=== PATIENT | male | born 1990 | race Hispanic/Latino ===

== ENCOUNTER 2016-04-01 17:48 | Emergency (ER) | payer OTHER ==
[~2016-04-01] VITALS: Ht 177.8 cm; Wt 106.6 kg
[~2016-04-01 17:48] MED LIST: CYCLOBENZAPRINE5 M2 PO; FLUTICASONE PRO16 GM NASB; OMEPRAZOLE40 M1 PO; PRAVASTATIN SOD10 M2 PO; TYLENOL WITH C1 EACH PO
[2016-04-01 17:49] VITALS: BP 125/83
--- NOTE | 2016-04-01 19:34 | ED GI/GU/ABDOMINAL COMPLAINT ---
History of Present Illness General Chief Complaint: Nausea, Vomiting, Diarrhea Stated Complaint: N/V/D Source: patient, old records, friend Exam Limitations: no limitations Vital Signs & Intake/Output Vital Signs & Intake/Output Vital Signs Date Time Temp Pulse Resp B/P Pulse O2 O2 Flow FiO2 Ox Delivery Rate 04/01 1749 97.6 130 20 125/83 96 Room Air Allergies Coded Allergies: NO KNOWN ALLERGIES (11/19/15) Reconcile Medications Fluticasone Propionate 16 GM SPRAY.SUSP 2 SPRAY NASB DAILY SEASONAL ALLERGIES (Reported) Montelukast Sodium 10 MG TABLET 1 TAB PO DAILY BREATHING (Reported) Omeprazole 40 MG CAPSULE.DR 1 CAP PO DAILY ACID REFLUX (Reported) Ondansetron (Zofran Odt) 4 MG TAB.RAPDIS 1 TAB SL TID PRN NAUSEA Pravastatin Sodium 10 MG TABLET 1 TAB PO DAILY CHOLESTEROL (Reported) Valsartan 160 MG TABLET 1 TAB PO DAILY HEART (Reported) Triage Note: PT TO ED C/O N/V/D SINCE THIS AM. C/O HOT AND COLD SWEATS. AFEBRILE. Triage Nurses Notes Reviewed? yes HPI: Patient presents with nausea vomiting diarrhea started this morning. Positive chills but no documented fever. Patient states he gets crampy left lower quadrant pain that escalates in intensity until he has a bowel movement and then the cramping pain subsides. At its worst the pain is 8 out of 10 and at its best it is 1 out of 10 and it is currently a 3 out of 10. Patient has not noticed any blood in his vomitus or his stool. There is no dysuria. There is no radiation of the pain. Past History Travel History Traveled to [place] past 21 day No Medical History Any Pertinent Medical History? 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 No Review of Systems Review of Systems Constitutional: Reports: see HPI, chills. EENTM: Reports: no symptoms. Respiratory: Reports: no symptoms. Cardiovascular: Reports: no symptoms. GI: Reports: see HPI, abdominal pain, diarrhea, nausea, vomiting. Genitourinary: Reports: no symptoms. Musculoskeletal: Reports: no symptoms. Skin: Reports: no symptoms. Neurological/Psychological: Reports: no symptoms. Hematologic/Endocrine: Reports: no symptoms. Immunologic/Allergic: Reports: no symptoms. All Other Systems: Reviewed and Negative Physical Exam Physical Exam General Appearance: well developed/nourished, alert, awake, moderate distress Head: atraumatic, normal appearance Eyes: Bilateral: PERRL, EOMI. Ears, Nose, Throat, Mouth: hearing grossly normal, DRY MUCOSA Neck: normal inspection, supple, full range of motion Respiratory: normal breath sounds, chest non-tender, no respiratory distress, lungs clear Cardiovascular: regular rate/rhythm, normal peripheral pulses Gastrointestinal: normal bowel sounds, soft, non-tender, no organomegaly, NO RLQ TENDERNESS Back: normal inspection, normal range of motion Extremities: normal range of motion Neurologic/Psych: no motor/sensory deficits, awake, alert, oriented x 3, normal mood/affect Skin: intact, normal color, warm/dry Core Measures ACS in differential dx? No Severe Sepsis Present: No Septic Shock Present: No Progress Differential Diagnosis: appendicitis, biliary colic, colon cancer, cholecystitis , diverticulitis, gastritis, hepatitis, ischemic bowel, inflamm bowel dis, pancreatitis, peptic ulcer, PUD/GERD, SBO Plan of Care: Orders Procedure Date/time Status LIPASE 04/01 1933 Complete COMPREHENSIVE METABOLIC PANEL 04/01 1933 Complete CBC WITHOUT DIFFERENTIAL 04/01 1933 Complete AMYLASE 04/01 1933 Complete Laboratory Tests 04/01/161956: Anion Gap 12, Estimated GFR > 60, BUN/Creatinine Ratio 13.8, Glucose 113 H, Calcium 9.3, Total Bilirubin 0.8, AST 30, ALT 64, Alkaline Phosphatase 73, Total Protein 7.3, Albumin 4.2, Globulin 3.1, Albumin/Globulin Ratio 1.4, Amylase 37, Lipase 37, CBC w Diff NO MAN DIFF REQ, RBC 5.42, MCV 90.7, MCH 31.1 H, RDW 13.0 , MPV 9.3, Gran % 93.6 H, Lymphocytes % 2.7 L, Monocytes % 3.6, Eosinophils % 0.1, Basophils % 0 L, Absolute Granulocytes 10.8 H, Absolute Lymphocytes 0.3 L, Absolute Monocytes 0.4, Absolute Eosinophils 0, Absolute Basophils 0, PUBS MCHC 34.3 Initial ED EKG: none Comments: ON RE-EXAM: NO RLQ TENDERNESS, NO GUARDING OR REBOUND Departure Departure Disposition: HOME OR SELF CARE Condition: Stable Clinical Impression Primary Impression: Viral gastroenteritis Referrals: BRIANA TRAORE MD (PCP/Family) Additional Instructions: Drink plenty fluids. Return if symptoms worsen or for any concerns. Departure Forms: Customer Survey General Discharge Information Prescriptions: Current Visit Scripts Ondansetron (Zofran Odt) 1 TAB SL TID PRN NAUSEA #10 TAB
[2016-04-01 20:07] LABS: ABSOLUTE BASOPHIL COUNT 0 /CUMM (0.0-0.2); ABSOLUTE EOSINOPHIL COUNT 0 /CUMM (0.0-0.7); ABSOLUTE GRANULOCYTE CT 10.8 /CUMM (1.4-6.5); ABSOLUTE LYMPH COUNT 0.3 /CUMM (1.2-3.4); ABSOLUTE MONOCYTE COUNT 0.4 /CUMM (0.10-0.60); BASOPHIL % 0 % (0.0-2.0); EOSINOPHIL % 0.1 % (0-5); HEMATOCRIT 49.2 % (42-52); MEAN CORPUSCULAR HGB 31.1 PG (27.0-31.0); MEAN CORPUSCULAR HGB CONC 34.3 G/DL (33.0-37.0); MEAN CORPUSCULAR VOLUME 90.7 FL (80.0-94.0); MEAN PLATELET VOLUME 9.3 FL (7.4-10.4); PLATELET COUNT 250 /CUMM (130-400); RED BLOOD CELL CT 5.42 /CUMM (4.70-6.10); WHITE BLOOD CELL COUNT 11.5 /CUMM (4.8-10.8)
[2016-04-01 20:31] LABS: GRANULOCYTE % 93.6 % (42.2-75.2)
[2016-04-01] MEDS ORDERED: MONTELUKAST SOD10 M1 PO (21:19)
[2016-04-01] MEDS ORDERED: VALSARTAN160 M1 PO (21:20)
[2016-04-01] MEDS ORDERED: ZOFRAN ODT4 M1 SL (21:39)
== END 2016-04-01 22:01 ==
LOC: ERH 17:48
PROVIDERS: Emergency Medicine
DX: A08.4 Viral intestinal infection, unspecified (principal)
CPT/HCPCS: 96374; 96375; J2405